=== PATIENT | female | born 1955 | race Caucasian/White ===

== ENCOUNTER → 2016-10-27 | Outpatient (CLI) | payer BC ==
--- NOTE | 2016-10-29 13:38 | DEXA ---
AP SPINE L1 - L4 1.226 0.3 1.5 LT FEMUR TOTAL 0.903 -0.8 0.1 RT FEMUR TOTAL 0.889 -0.9 0.0 TOTAL BODY TOTAL OTHER DUAL FEMUR FRAX* ASSESSMENT Risk factors: Rheumatoid arthritis, premature menopause. 10 year probability of fracture Major osteoporotic fracture 9.9 % Hip fracture 0.9 % COMMENTS: Normal bone densitometry of the spine. There is low bone density of hips. The density of the spine has increased 8.4% since the initial exam on 2002. The spine density has increased 2.7% since the most recent exam on 04/20/2006. The density of the left hip has decreased 2.8% since the initial exam on 2002. The density of the left hip has increased 1.5% since the most recent exam on . The density of the right hip has decreased 5.3% since the initial exam on 2002. The density of the right hip has increased 0.9% since the most recent exam on . FOLLOW-UP: Recommendation for the next bone density exam: 2 years. MTDD
== END ==
LOC: M WHC 14:15
PROVIDERS: ATTEND Family Medicine
DX: Z13.820 Encounter for screening for osteoporosis (principal)

== ENCOUNTER → 2016-11-01 | Outpatient (REF) | payer BC | LOC: M LABDRAW1 09:42 | PROVIDERS: ATTEND Family Medicine | DX: Z00.00 Encounter for general adult medical examination without abnormal findings (principal); Z13.818 Encounter for screening for other digestive system disorders ==

== ENCOUNTER → 2018-03-07 | Outpatient (REF) | payer BC ==
[2018-03-07 12:43] LABS: BASO % 0.7 % (0.0-1.0); EOS # 0.2 10^3/uL (0.0-0.50); EOS % 4.5 % (0.0-3.0); HEMATOCRIT 43.1 % (36.0-47.0); HEMOGLOBIN 14.7 g/dl (12.0-15.5); IMMATURE GRANULOCYTE % 0.2 % (0-3.0); LYMPH # 1.3 10^3/uL (1.5-4.5); LYMPH % 29.7 % (24.0-44.0); MEAN CORPUSCULAR HGB CONC 34.1 g/dl (32.0-36.5); MEAN CORPUSCULAR VOLUME 96.6 fl (80.0-96.0); MONO # 0.2 10^3/uL (0.0-0.8); MONO % 5.4 % (0.0-5.0); NEUTROPHILS # 2.7 10^3/uL (1.8-7.7); NEUTROPHILS % 59.5 % (36.0-66.0); PLATELET COUNT, AUTOMATED 235 10^3/uL (150-450); RED BLOOD COUNT 4.46 10^6/uL (4.00-5.40); RED CELL DISTRIBUTION WIDTH 12.3 % (11.5-14.5); WHITE BLOOD COUNT 4.5 10^3/uL (4.0-10.0)
[2018-03-07 13:01] LABS: ALBUMIN/GLOBULIN RATIO 1.33 (1.00-1.93); ALKALINE PHOSPHATASE 65 U/L (45-117); ALT/SGPT 25 U/L (12-78); ANION GAP 6 MEQ/L (8-16); AST/SGOT 14 U/L (7-37); BILIRUBIN,TOTAL 0.3 MG/DL (0.2-1.0); BLOOD UREA NITROGEN 15 MG/DL (7-18); CALCIUM LEVEL 9.2 MG/DL (8.8-10.2); CARBON DIOXIDE LEVEL 27 MEQ/L (21-32); CHLORIDE LEVEL 109 MEQ/L (98-107); CHOLESTEROL LEVEL 261 MG/DL (<200); CHOLESTEROL RISK RATIO 4.833 (<5); CREATININE FOR GFR 0.96 MG/DL (0.55-1.30); GLOMERULAR FILTRATION RATE > 60.0 (>45); GLUCOSE, FASTING 89 MG/DL (70-100); HDL CHOLESTEROL 54 MG/DL (>40); LDL CHOLESTEROL 171 MG/DL (<100); NON-HDL-C 207 MG/DL; POTASSIUM SERUM 4.3 MEQ/L (3.5-5.1); SODIUM LEVEL 142 MEQ/L (136-145); TRIGLYCERIDES LEVEL 179 MG/DL (<150)
== END ==
LOC: M LABDRAW1 12:09
DX: Z00.00 Encounter for general adult medical examination without abnormal findings (principal)

== ENCOUNTER → 2018-03-07 | Outpatient (CLI) | payer BC | LOC: M WHC 07:04 | DX: Z12.31 Encounter for screening mammogram for malignant neoplasm of breast (principal); Z78.0 Asymptomatic menopausal state; Z92.23 Personal history of estrogen therapy; Z80.49 Family history of malignant neoplasm of other genital organs | CPT/HCPCS: 77067 ==

== ENCOUNTER → 2018-06-06 | Outpatient (CLI) | payer BC ==
[~2018-06-06] MED LIST: PROHANCE 279.3MG/ML 15ML VIAL (A9576) As Ordered ONE; PROHANCE 279.3MG/ML 5ML VIAL (A9576) As Ordered ONE
--- NOTE | 2018-06-07 08:38 | REP ---
MR ORBITS WITHOUT AND WITH CONTRAST: HISTORY: Blepharospasm. CONTRAST: ProHance 16 mL. The globes, optic nerves, and rectus muscle are normal in appearance. There is no orbital lesion. The is no abnormal enhancement. The pituitary gland, cavernous sinuses, optic chiasm, and hypothalamus are normal in appearance. Areas of increased signal intensity on T2-weighted images are present in the periventricular and subcortical white matter. This represents small vessel ischemic disease. There is no intraparenchymal hemorrhage, infarct, mass, or midline shift. The ventricular system is normal in appearance. There is no extracerebral collection. Minimal mucosal thickening is present in the right maxillary sinus. IMPRESSION: 1. There is no orbital lesion. 2. Small vessel ischemic disease. Electronically Signed by Frank Rutherford MD 06/07/2018 08:41 A
== END ==
LOC: M RAD 17:10
PROVIDERS: ATTEND Ophthalmology
DX: G24.5 Blepharospasm (principal)
CPT/HCPCS: 70543; A9576

== ENCOUNTER → 2019-05-08 | Outpatient (REF) | payer BC | LOC: M LAB REF 18:30 | PROVIDERS: ATTEND Dermatology | DX: D48.9 Neoplasm of uncertain behavior, unspecified (principal) ==

== ENCOUNTER → 2020-04-10 | Outpatient (CLI) | payer BC ==
[~2020-04-10] MED LIST changes: +E-Z-GAS II EFFERVESCENT PACKET (SODIUM BICARB./CITRIC ACID/SIMETHICONE) As Ordered ONE; +E-Z-HD 98% w/w 340GM SUSP BTL As Ordered ONE; +E-Z-PAQUE 96% w/w SUSP 176GM BTL As Ordered ONE; -PROHANCE 279.3MG/ML 15ML VIAL (A9576) As Ordered ONE; -PROHANCE 279.3MG/ML 5ML VIAL (A9576) As Ordered ONE
--- NOTE | 2020-04-10 11:28 | REP ---
INDICATION: PAIN IN RT MADAY, SCIATICA LEFT SIDE COMPARISON: None. TECHNIQUE: AP, lateral, bilateral oblique, and coned-down views of the lumbar spine. FINDINGS: Alignment and lordosis maintained. Vertebral bodies are intact. No spondylolisthesis or spondylolysis appreciated. Endplate sclerosis with disc space narrowing and mild facet arthropathy noted at L5-S1. Remainder of examination is a essentially age-appropriate. IMPRESSION: Moderate focal degenerative changes at L5-S1. <Electronically signed by Kit Woodward > 04/10/20 112
--- NOTE | 2020-04-10 11:30 | REP ---
INDICATION: PAIN IN RT MADAY, SCIATICA LEFT SIDE COMPARISON: None. TECHNIQUE: AP, lateral, bilateral oblique and sunrise views. FINDINGS: Age-related osteopenia and generalized age-related changes are appreciated. No overt osteoarthritic findings noted. Joint spaces are intact and relatively normal. No evidence for acute fracture or dislocation. No obvious effusion. IMPRESSION: Mild osteopenia and generalized age-related changes. <Electronically signed by Kit Woodward > 04/10/20 0925
--- NOTE | 2020-04-10 18:23 | REP ---
INDICATION: GASTRO REFLUX DISEASE. COMPARISON: None TECHNIQUE: This procedure was performed by Mini Salas [facility], under the direct supervision of Dr. Acevedo. Images were reviewed with Dr. Acevedo prior to dictation. Liquid barium and gas producing crystals were given in the erect position, as well as liquid barium in the prone oblique position in order to perform a double contrast upper GI examination. 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 The intestinal gas pattern is unremarkable. The oral and pharyngeal stages of deglutition were unremarkable. Esophageal transport is prompt and efficient and there is no evidence of esophagitis, stricture, or mucosal ring. There is a small hiatal hernia. Gastroesophageal reflux was visualized to the level of the wilber. The stomach issa are normally outlined. The rugal folds are smooth and regular. There is no gastritis, neoplasm, or ulcerative disease. The duodenal issa are normally outlined. The mucosal folds are smooth and regular. There is no duodenitis, peptic ulcer disease or neoplasm. The visualized portion of the proximal small bowel appears normal in course and caliber. IMPRESSION: 1. Small hiatal hernia. 2. Gastroesophageal reflux to the level of the wilber. 0.4 minutes of fluoroscopy time was utilized for this procedure. Some fluoroscopic images are performed with last image hold technology. These images require no additional radiation. <Electronically signed by Mini Salas > 04/10/20 1620 <Electronically signed by Rudy Acevedo > 04/10/20 1820
== END ==
LOC: M RAD 09:45
PROVIDERS: ATTEND Family Medicine
DX: K21.9 Gastro-esophageal reflux disease without esophagitis (principal); M25.761 Osteophyte, right knee; M54.32 Sciatica, left side; M51.26 Other intervertebral disc displacement, lumbar region; K44.9 Diaphragmatic hernia without obstruction or gangrene

== ENCOUNTER → 2020-05-20 | Outpatient (CLI) | payer BC ==
--- NOTE | 2020-05-20 13:25 | REP ---
INDICATION: RT KNEE PAIN ? MENISCUS TEAR. COMPARISON: Comparison knee radiographs are from April 10, 2020.. TECHNIQUE: Axial, coronal, and sagittal imaging planes utilized. T1, proton density and T2 weighted scans are included with without fat saturation in the usual fashion. FINDINGS: There is a zone of marrow edema in the superior pole of the patella. There is moderate chondromalacia adjacent to this. There is subcortical cyst formation in the anterior aspect of the medial tibial plateau. Cortical and medullary bone signal intensity are otherwise normal. There is a moderate joint effusion in the suprapatellar bursa and a Jackson's cyst is seen in the posteromedial popliteal soft tissues. Anterior and posterior cruciate ligaments appear intact. The patellar and quadriceps tendons are intact. There is no evidence of medial or lateral collateral ligament disruption. There are moderate chondromalacia changes involving the medial femoral condyle, lateral femoral condyle, and lateral tibial plateau. There is some early lateral compartment tibiofemoral spur formation. No medial or lateral meniscal tear is appreciated. There is some joint fluid along the lateral meniscus. 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 Moderate-sized joint effusion. Jackson's cyst. Early lateral compartment tib EO femoral spurring. No definite meniscal tear. <Electronically signed by Willy Frazier > 05/20/20 [id number]
== END ==
LOC: M RAD 11:32
PROVIDERS: ATTEND Orthopaedic Surgery
DX: M25.561 Pain in right knee (principal); M94.261 Chondromalacia, right knee

== ENCOUNTER → 2020-06-05 | Outpatient (CLI) | payer SELFPAY ==
[2020-06-07 15:23] LABS: Lyme Disease IgG/IgM Antibodie <0.91 ISR (0.00-0.90); Lyme Disease IgM Ab Quantitati <0.80 index (0.00-0.79)
== END ==
LOC: M PLALAB 15:44
PROVIDERS: ATTEND Orthopaedic Surgery
DX: M25.461 Effusion, right knee (principal)

== ENCOUNTER → 2020-06-09 | Outpatient (CLI) | payer BC, SELFPAY | LOC: M LABSMTC 12:15 | PROVIDERS: ATTEND Pediatrics | DX: Z20.822 Contact with and (suspected) exposure to COVID-19 (principal) ==

== ENCOUNTER → 2021-07-20 | Outpatient (CLI) | payer BC ==
[2021-07-20 10:28] LABS: HEMATOCRIT 44.6 % (36.0-47.0); HEMOGLOBIN 15.2 g/dl (12.0-15.5); MEAN CORPUSCULAR HEMOGLOBIN 31.7 pg (27.0-33.0); MEAN CORPUSCULAR HGB CONC 34.1 g/dl (32.0-36.5); MEAN CORPUSCULAR VOLUME 92.9 fl (80.0-96.0); PLATELET COUNT, AUTOMATED 244 10^3/uL (150-450); WHITE BLOOD COUNT 4.7 10^3/uL (4.0-10.0)
[2021-07-20 11:27] LABS: ALBUMIN 3.9 GM/DL (3.2-5.2); ALT/SGPT 50 U/L (12-78); BILIRUBIN,TOTAL 0.4 MG/DL (0.2-1.0); BLOOD UREA NITROGEN 14 MG/DL (7-18); CALCIUM LEVEL 9.5 MG/DL (8.8-10.2); CARBON DIOXIDE LEVEL 23 MEQ/L (21-32); CHLORIDE LEVEL 107 MEQ/L (98-107); CHOLESTEROL LEVEL 230 MG/DL (<200); CHOLESTEROL RISK RATIO 4.107 (<5); CREATININE FOR GFR 0.95 MG/DL (0.55-1.30); GLOMERULAR FILTRATION RATE > 60.0 (>45); GLUCOSE, FASTING 91 MG/DL (70-100); HDL CHOLESTEROL 56 MG/DL (>40); LDL CHOLESTEROL 143 MG/DL (<100); NON-HDL-C 174 MG/DL; POTASSIUM SERUM 4.3 MEQ/L (3.5-5.1); SODIUM LEVEL 140 MEQ/L (136-145); TOTAL 25(OH) VITAMIN D 38.9 NG/ML (30.0-100.0); TRIGLYCERIDES LEVEL 156 MG/DL (<150)
== END ==
LOC: M WUC 08:26
PROVIDERS: ATTEND Family Medicine
DX: Z00.00 Encounter for general adult medical examination without abnormal findings (principal); E56.9 Vitamin deficiency, unspecified

== ENCOUNTER → 2021-09-21 | Outpatient (CLI) | payer MEDICARE, BC | LOC: M WHC 09:36 | PROVIDERS: ATTEND Family Medicine | DX: Z12.31 Encounter for screening mammogram for malignant neoplasm of breast (principal) ==

== ENCOUNTER → 2021-12-17 | Outpatient (CLI) | payer MEDICARE, BC | LOC: M SOG 08:32 | PROVIDERS: ATTEND Physician Assistant | DX: M19.041 Primary osteoarthritis, right hand (principal) ==

== ENCOUNTER → 2023-02-23 | Outpatient (CLI) | payer MEDICARE, BC ==
[2023-02-23 10:19] LABS: BASO % 0.6 % (0.0-1.0); EOS # 0.2 10^3/uL (0.0-0.5); EOS % 3.6 % (0.0-3.0); HEMATOCRIT 44.3 % (36.0-47.0); LYMPH # 1.8 10^3/uL (1.5-5.0); LYMPH % 34.4 % (24.0-44.0); MEAN CORPUSCULAR HEMOGLOBIN 31.9 pg (27.0-33.0); MEAN CORPUSCULAR HGB CONC 33.9 g/dl (32.0-36.5); MEAN CORPUSCULAR VOLUME 94.3 fl (80.0-96.0); MONO # 0.3 10^3/uL (0.0-0.8); MONO % 5.6 % (2.0-8.0); NEUTROPHILS % 55.6 % (36.0-66.0); PLATELET COUNT, AUTOMATED 254 10^3/uL (150-450); WHITE BLOOD COUNT 5.4 10^3/uL (4.0-10.0)
[2023-02-23 10:42] LABS: LIPASE 47 U/L (12-53)
[2023-02-23 10:44] LABS: ALBUMIN 3.9 G/DL (3.2-5.2); ALKALINE PHOSPHATASE 71 U/L (46-116); ALT/SGPT 19 U/L (7.0-40); AMYLASE 35 U/L (30-118); AST/SGOT 12 U/L (<34); BILIRUBIN,TOTAL 0.4 MG/DL (0.3-1.2); BLOOD UREA NITROGEN 16 MG/DL (9-23); CALCIUM LEVEL 9.4 MG/DL (8.3-10.6); CARBON DIOXIDE LEVEL 27 MMOL/L (20-31); CHLORIDE LEVEL 106 MMOL/L (98-107); CREATININE FOR GFR 0.84 MG/DL (0.55-1.30); GLOMERULAR FILTRATION RATE > 60.0 (>45); GLUCOSE, FASTING 91 MG/DL (74-106); POTASSIUM SERUM 4.3 MMOL/L (3.5-5.1); SODIUM LEVEL 141 MMOL/L (136-145); TOTAL PROTEIN 6.8 G/DL (5.7-8.2)
== END ==
LOC: M WUC 08:06
PROVIDERS: ATTEND Family Medicine
DX: R10.11 Right upper quadrant pain (principal)

== ENCOUNTER → 2023-03-03 | Outpatient (CLI) | payer MEDICARE ==
[~2023-03-03] MED LIST changes: -E-Z-GAS II EFFERVESCENT PACKET (SODIUM BICARB./CITRIC ACID/SIMETHICONE) As Ordered ONE; -E-Z-HD 98% w/w 340GM SUSP BTL As Ordered ONE; -E-Z-PAQUE 96% w/w SUSP 176GM BTL As Ordered ONE; +GASTROGRAFIN SOLUTION 30ML As Ordered ONE; +ISOVUE-370 76% 100ML VIAL As Ordered ONE
== END ==
LOC: M RAD 12:56
PROVIDERS: ATTEND Family Medicine
DX: R10.11 Right upper quadrant pain (principal)
CPT/HCPCS: 74177; Q9963; Q9967

== ENCOUNTER → 2023-06-23 | Outpatient (REF) | payer MEDICARE ==
[2023-06-23 14:31] LABS: APPEARANCE, URINE CLEAR (CLEAR); BACTERIA, URINE AUTO 1+ (NEGATIVE); BILIRUBIN, URINE AUTO NEGATIVE (NEGATIVE); BLOOD, URINE BLOOD 2+ (NEGATIVE); COLOR, URINE STRAW (YELLOW); GLUCOSE, URINE (UA) AUTO NEGATIVE (NEGATIVE); KETONE, URINE AUTO NEGATIVE (NEGATIVE); LEUKOCYTE ESTERASE, URINE AUTO 3+ (NEGATIVE); MUCUS, URINE SMALL (NEGATIVE); NITRITE, URINE AUTO NEGATIVE (NEGATIVE); PROTEIN, URINE AUTO NEGATIVE (NEGATIVE); RBC, URINE AUTO 1 /HPF (0-3); SPECIFIC GRAVITY URINE AUTO 1.004 (1.002-1.035); SQUAMOUS EPITHELIAL CELL UR AU 0 /HPF (0-6); UROBILINOGEN, URINE AUTO 0.2 mg/dL (0.0-2.0); WBC, URINE AUTO 53 /HPF (0-3)
== END ==
LOC: M LAB REF 12:05
PROVIDERS: ATTEND Physician Assistant
DX: N39.0 Urinary tract infection, site not specified (principal)

== ENCOUNTER 2023-09-30 15:04 | Observation (INO) | payer MEDICARE ==
[~2023-09-30] VITALS: Ht 153.9 cm; Wt 80.7 kg
[2023-09-30] MEDS ORDERED: NEXI40GR PO (15:14)
[2023-09-30 15:39] LABS: BASO % 0.3 % (0.0-1.0); EOS # 0.1 10^3/uL (0.0-0.5); EOS % 1.6 % (0.0-3.0); HEMATOCRIT 41.9 % (36.0-47.0); HEMOGLOBIN 14.5 g/dl (12.0-15.5); LYMPH # 2.4 10^3/uL (1.5-5.0); LYMPH % 37.1 % (24.0-44.0); MEAN CORPUSCULAR HEMOGLOBIN 32.3 pg (27.0-33.0); MEAN CORPUSCULAR HGB CONC 34.6 g/dl (32.0-36.5); MEAN CORPUSCULAR VOLUME 93.3 fl (80.0-96.0); MONO # 0.4 10^3/uL (0.0-0.8); MONO % 6.6 % (2.0-8.0); NEUTROPHILS # 3.5 10^3/uL (1.5-8.5); NEUTROPHILS % 54.2 % (36.0-66.0); PLATELET COUNT, AUTOMATED 214 10^3/uL (150-450); RED BLOOD COUNT 4.49 10^6/uL (4.00-5.40); WHITE BLOOD COUNT 6.4 10^3/uL (4.0-10.0)
[2023-09-30] MEDS ORDERED: ISOVUE-370 76% 100ML VIAL As Ordered ONE (15:46)
[2023-09-30 16:03] LABS: ALBUMIN 3.8 G/DL (3.2-5.2); ALKALINE PHOSPHATASE 70 U/L (46-116); ALT/SGPT 20 U/L (7.0-40); AST/SGOT 13 U/L (<34); BILIRUBIN,TOTAL 0.3 MG/DL (0.3-1.2); BLOOD UREA NITROGEN 22 MG/DL (9-23); CALCIUM LEVEL 9.3 MG/DL (8.3-10.6); CARBON DIOXIDE LEVEL 25 MMOL/L (20-31); CHLORIDE LEVEL 109 MMOL/L (98-107); CREATININE FOR GFR 0.85 MG/DL (0.55-1.30); GLOMERULAR FILTRATION RATE > 60.0 (>45); GLUCOSE, FASTING 90 MG/DL (74-106); INR 0.96; PARTIAL THROMBOPLASTIN TIME 22.2 SECONDS (24.8-34.2); POTASSIUM SERUM 3.8 MMOL/L (3.5-5.1); PROTHROMBIN TIME 12.5 SECONDS (12.5-14.5); SODIUM LEVEL 141 MMOL/L (136-145); TOTAL PROTEIN 6.7 G/DL (5.7-8.2)
[2023-09-30] MEDS ORDERED: MAALOX 30 ML SUSP *UDC PO PRN (17:35)
[2023-09-30] MEDS ORDERED: MOM 30ML SUSPENSION UDC PO PRN (17:35)
[2023-09-30] MEDS ORDERED: MAG100TA PO (18:42)
[2023-09-30] MEDS ORDERED: MULT1TAB16 PO (18:42)
[2023-09-30] MEDS ORDERED: CHRO200C2 PO (18:42)
[2023-09-30] MEDS ORDERED: AZEL205.5 NARES (18:42)
[2023-09-30] MEDS ORDERED: ESOM40CA35 PO (18:42)
[2023-09-30] MEDS ORDERED: SYMB16INH INH (18:42)
[2023-09-30] MEDS ORDERED: CHOL50003 PO (18:42)
[2023-09-30] MEDS ORDERED: PROBCAP14 PO (18:42)
[2023-09-30] MEDS ORDERED: CICL0.7733 TOP (18:42)
[2023-09-30] MEDS ORDERED: VENTAER INH (18:42)
[2023-09-30] MEDS ORDERED: HOME MED LIST COMPLETE! XX SCH (18:45)
[2023-09-30] MEDS ORDERED: ALBUTEROL 90 MCG/ACT 8GM HFA INHALER INH PRN (18:55)
[2023-09-30 21:18] VITALS: BP 143/85; TEMP 97.5; O2SAT 94
[2023-09-30] MEDS: SYMBICORT 160/4.5MCG INHALER 6GM INH SCH (22:20)
[2023-09-30] MEDS: AZELASTINE 137MCG NASAL SPY 30 ML (ASTELIN) SCH (22:40)
[2023-09-30] MEDS: DOCUSATE SODIUM 100MG CAPSULE PO SCH (22:40)
[2023-10-01 04:35] VITALS: BP 126/66; TEMP 97.7; O2SAT 95
[2023-10-01] MEDS: PANTOPRAZOLE 40MG TAB (PROTONIX) PO SCH (08:14)
[2023-10-01] MEDS: ACETAMINOPHEN TAB 650MG DOSE (2X325MG) PO PRN (08:18)
[2023-10-01] MEDS ORDERED: MECL-86 PO (11:46)
== END 2023-10-01 14:35 | disposition home or self-care (01) ==
LOC: EDBD 15:04 → M ED 15:04 → M ED INP 17:36 → M MSPAV 21:19
PROVIDERS: ADMIT Internal Medicine Nephrology; ATTEND Internal Medicine Nephrology
DX: H81.4 Vertigo of central origin (principal); H81.20 Vestibular neuronitis, unspecified ear; H83.09 Labyrinthitis, unspecified ear; J45.20 Mild intermittent asthma, uncomplicated; H74.8X3 Other specified disorders of middle ear and mastoid, bilateral; K21.9 Gastro-esophageal reflux disease without esophagitis; K44.9 Diaphragmatic hernia without obstruction or gangrene; J30.2 Other seasonal allergic rhinitis; J34.2 Deviated nasal septum; L57.0 Actinic keratosis; D18.01 Hemangioma of skin and subcutaneous tissue; B35.3 Tinea pedis; L81.4 Other melanin hyperpigmentation; Z79.899 Other long term (current) drug therapy
CPT/HCPCS: 70450; 70496; 70498; 70551; 71045; 80047; 80053; 85025; 85610; 85730; 93005; 93041; 93306; 94640; 94760; 99285; G0378; Q9967

== ENCOUNTER → 2023-10-10 | Outpatient (CLI) | payer MEDICARE ==
[~2023-10-10] MED LIST changes: +AZEL205.5 NARES; +CHOL50003 PO; +CHRO200C2 PO; +CICL0.7733 TOP; +ESOM40CA35 PO; -GASTROGRAFIN SOLUTION 30ML As Ordered ONE; -ISOVUE-370 76% 100ML VIAL As Ordered ONE; +MAG100TA PO; +MECL-86 PO; +MULT1TAB16 PO; +NEXI40GR PO; +PROBCAP14 PO; +SYMB16INH INH; +VENTAER INH
[2023-10-10 11:23] LABS: CHOLESTEROL RISK RATIO 3.99 (<5); HDL CHOLESTEROL 57.1 MG/DL (>40); LDL CHOLESTEROL 136.5 MG/DL (<100); NON-HDL-C 170.9 MG/DL
[2023-10-10 11:25] LABS: TOTAL 25(OH) VITAMIN D 37.3 NG/ML (20.0-100.0)
== END ==
LOC: M WUC 08:33
PROVIDERS: ATTEND Family Medicine
DX: Z00.00 Encounter for general adult medical examination without abnormal findings (principal); E55.9 Vitamin D deficiency, unspecified; Z79.899 Other long term (current) drug therapy

== ENCOUNTER → 2024-02-10 | Outpatient (CLI) | payer MEDICARE | LOC: M SOG 07:17 | PROVIDERS: ATTEND Physician Assistant | DX: M25.511 Pain in right shoulder (principal) ==

== ENCOUNTER → 2024-08-06 | Outpatient (REF) | payer MEDICARE | LOC: M SFHCDERM 17:14 | PROVIDERS: ATTEND Physician Assistant | DX: D49.2 Neoplasm of unspecified behavior of bone, soft tissue, and skin (principal) ==